=== PATIENT | female | born 1990 | race Hispanic/Latino ===

== ENCOUNTER 2017-01-15 17:55 | Emergency (ER) | payer BC, SELFPAY ==
--- NOTE | 2017-01-15 20:10 | RAD ---
THREE VIEWS CERVICAL SPINE 01/15/17 HISTORY: Patient fell down stairs, hit head, pain in neck. AP, lateral and open mouth odontoid views of cervical spine obtained. Cervical spine is unremarkable. No evidence of cervical spine fractures, subluxations or bony lesion s seen. IMPRESSION: Normal three view cervical spine. POS: [facility]
== END 2017-01-15 18:38 | disposition home or self-care (01) ==
LOC: BURERS 17:55
DX: S16.1XXA Strain of muscle, fascia and tendon at neck level, initial encounter (principal); S13.9XXA Sprain of joints and ligaments of unspecified parts of neck, initial encounter; G40.909 Epilepsy, unspecified, not intractable, without status epilepticus; Z79.899 Other long term (current) drug therapy; W10.9XXA Fall (on) (from) unspecified stairs and steps, initial encounter
CPT/HCPCS: 72040

== ENCOUNTER 2021-10-18 19:29 | Emergency (ER) | payer BC ==
[2021-10-18] MEDS ORDERED: Bacitracin 1 PK ONE (20:04)
== END 2021-10-18 20:07 | disposition home or self-care (01) ==
LOC: BURERS 19:29
DX: S61.210A Laceration without foreign body of right index finger without damage to nail, initial encounter (principal); G40.909 Epilepsy, unspecified, not intractable, without status epilepticus; W23.0XXA Caught, crushed, jammed, or pinched between moving objects, initial encounter
CPT/HCPCS: 12001

== ENCOUNTER 2022-06-10 12:45 | Outpatient (CLI) | payer BC | END 2022-06-10 12:46 | disposition home or self-care (01) | LOC: BURRAD 12:45 | PROVIDERS: ATTEND Nurse Practitioner Family | DX: S99.912A Unspecified injury of left ankle, initial encounter (principal); M79.89 Other specified soft tissue disorders ==

== ENCOUNTER 2022-11-26 12:04 | Outpatient (CLI) | payer BC | END 2022-11-26 12:05 | disposition home or self-care (01) | LOC: BURCT 12:04 | PROVIDERS: ATTEND Physician Assistant | DX: R10.31 Right lower quadrant pain (principal); K76.0 Fatty (change of) liver, not elsewhere classified | CPT/HCPCS: 74177 ==